=== PATIENT | female | born 1945 | race Caucasian/White ===

== ENCOUNTER 2017-03-09 13:48 | Inpatient (IN) | payer OTHER ==
[~2017-03-09] VITALS: Ht 154.9 cm; Wt 78.2 kg
[2017-03-09 14:43] LABS: HEMATOCRIT 40.2 % (36.0-46.0); MCHC 32.8 G/DL (30.0-36.0); MCV 88.4 FL (83-99); RBC DIS.WIDTH-CV 13.3 % (11.8-14.6); RBC DIS.WIDTH-SD 43.7 % (39-53); RED BLOOD COUNT 4.55 M/uL (3.80-5.20)
[2017-03-09 14:50] LABS: PROTHROMBIN TIME 11.2 SEC (10.2-12.9)
[2017-03-09 14:51] LABS: CHLORIDE 109 mEq/L (99-109); SODIUM 144 mEq/L (136-147)
[2017-03-09 14:53] LABS: GLUCOSE 103 mg/dL (70-99)
[2017-03-09 14:54] LABS: ANION GAP 10 MEQ/L (2-14)
[2017-03-09 14:57] LABS: GFR ESTIMATE (CALCULATED) > 59 mL/min/
[2017-03-09 14:58] LABS: UREA NITROGEN (BUN) 10 mg/dL (9-23)
[2017-03-09 15:48] LABS: MEAN PLAT.VOLUME 11.3 uM^3 (9.5-12.4); PLAT.SUFFICIENCY ADEQUATE; PLATELET COUNT 255 K/uL (156-360)
[2017-03-09] MEDS ORDERED: NAPROXEN500 MG PO (16:13)
[2017-03-09] MEDS ORDERED: MINOCYCLINE HC100 MG PO (16:14)
[2017-03-09] MEDS ORDERED: SIMVASTATIN20 MG PO (16:14)
[2017-03-09] MEDS ORDERED: FLUTICASONE PRO16 GM BOTH NARES (16:14)
[2017-03-09] MEDS ORDERED: FUROSEMIDE20 MG PO (16:14)
[2017-03-09] MEDS ORDERED: OMEPRAZOLE40 M1 PO (16:15)
[2017-03-09] MEDS ORDERED: LOSARTAN POTAS100 MG PO (16:15)
[2017-03-09] MEDS ORDERED: CALCIUM + D SO1 EACH PO (16:16)
[2017-03-09] MEDS ORDERED: VITAMIN B122500 MCG PO (16:16)
[2017-03-09] MEDS ORDERED: VITAMIN D35000 UNIT PO (16:17)
[2017-03-09] MEDS ORDERED: ONE DAILY MULT1 EACH PO (16:17)
[2017-03-09] MEDS ORDERED: FISH OIL 1,0001 EA10 PO (16:18)
[2017-03-09] MEDS ORDERED: MELATONIN5 MG SL (16:18)
[2017-03-09 17:10] LABS: TROP-I INTERPRETATION NEGATIVE; TROPONIN-I < 0.01 ng/mL (0.0-0.30)
[2017-03-09 19:41] VITALS: BP 170/81
[2017-03-09 23:04] VITALS: BP 150/68
[2017-03-10 05:30] VITALS: BP 140/56
[2017-03-10 07:34] VITALS: BP 146/65
[2017-03-10 13:31] LABS: HEMATOCRIT 38.6 % (36.0-46.0); MCH 28.7 PG (29.0-34.0); MCHC 32.4 G/DL (30.0-36.0); MCV 88.7 FL (83-99); MEAN PLAT.VOLUME 11.1 uM^3 (9.5-12.4); PLATELET COUNT 237 K/uL (156-360); RBC DIS.WIDTH-CV 13.6 % (11.8-14.6); RBC DIS.WIDTH-SD 44.5 % (39-53); RED BLOOD COUNT 4.35 M/uL (3.80-5.20); WHITE BLOOD COUNT 5.8 K/uL (4.1-10.2)
[2017-03-10 13:57] LABS: ALKALINE PHOSPHATASE 108 IU/L (3-129); ANION GAP 9 MEQ/L (2-14); CHLORIDE 106 MEQ/L (99-109); GFR ESTIMATE (CALCULATED) > 59 mL/min/; GLUCOSE 99 mg/dL (70-99); HDL CHOLESTEROL 77 MG/DL (Desirable>=50); LDL CHOLESTEROL 78 mg/dL (Desirable<100); NON-HDL CHOLESTEROL 99 mg/dL (Desirable<160); POTASSIUM 3.6 MEQ/L (3.7-5.4); SAMPLE HEMOLYSIS CHECK 0; SAMPLE ICTERIC CHECK 0; SAMPLE LIPEMIA CHECK 0; SODIUM 145 MEQ/L (136-147); TOTAL BILIRUBIN 0.5 MG/DL (0.0-1.0); TOTAL CHOLESTEROL 176 mg/dL (Desirable<200); TRIGLYCERIDES 106 MG/DL (Normal: <150); UREA NITROGEN (BUN) 11 mg/dL (9-23)
[2017-03-10 14:54] LABS: Estimated Average Glucose 114 mg/dL (70-123); HEMOGLOBIN A1c (GLYCOHEMOGLOB) 5.6 % HGB (Below 5.7)
[2017-03-10 19:38] VITALS: BP 165/70
[2017-03-11] VITALS (9 sets, daily range): BP systolic 114–198; BP diastolic 56–93
[2017-03-11 05:56] LABS: HEMATOCRIT 38.2 % (36.0-46.0); MCH 28.5 PG (29.0-34.0); MCHC 32.2 G/DL (30.0-36.0); MCV 88.4 FL (83-99); MEAN PLAT.VOLUME 11.3 uM^3 (9.5-12.4); PLATELET COUNT 230 K/uL (156-360); RBC DIS.WIDTH-CV 13.6 % (11.8-14.6); RBC DIS.WIDTH-SD 44.5 % (39-53); RED BLOOD COUNT 4.32 M/uL (3.80-5.20); WHITE BLOOD COUNT 4.7 K/uL (4.1-10.2)
[2017-03-11 06:39] LABS: ALKALINE PHOSPHATASE 116 IU/L (3-129); ANION GAP 9 MEQ/L (2-14); CHLORIDE 105 MEQ/L (99-109); GFR ESTIMATE (CALCULATED) > 59 mL/min/; SAMPLE HEMOLYSIS CHECK 0; SAMPLE ICTERIC CHECK 0; SAMPLE LIPEMIA CHECK 0; SODIUM 142 MEQ/L (136-147); UREA NITROGEN (BUN) 14 mg/dL (9-23)
[2017-03-11 06:45] LABS: GLUCOSE 149 mg/dL (70-99); POTASSIUM 4.4 MEQ/L (3.7-5.4); TOTAL BILIRUBIN 0.3 MG/DL (0.0-1.0)
[2017-03-12 06:17] LABS: HEMATOCRIT 35.5 % (36.0-46.0); MCH 29.9 PG (29.0-34.0); MCHC 33.2 G/DL (30.0-36.0); MCV 89.9 FL (83-99); MEAN PLAT.VOLUME 11.6 uM^3 (9.5-12.4); PLATELET COUNT 211 K/uL (156-360); RBC DIS.WIDTH-SD 45.4 % (39-53); RED BLOOD COUNT 3.95 M/uL (3.80-5.20); WHITE BLOOD COUNT 8.8 K/uL (4.1-10.2)
[2017-03-12 06:43] LABS: ANION GAP 9 MEQ/L (2-14); CHLORIDE 107 MEQ/L (99-109); GFR ESTIMATE (CALCULATED) > 59 mL/min/; POTASSIUM 4.4 MEQ/L (3.7-5.4); SAMPLE HEMOLYSIS CHECK 0; SAMPLE ICTERIC CHECK 0; SAMPLE LIPEMIA CHECK 0; SODIUM 143 MEQ/L (136-147); TOTAL BILIRUBIN 0.3 MG/DL (0.0-1.0)
[2017-03-12 06:45] LABS: ALKALINE PHOSPHATASE 79 IU/L (3-129); GLUCOSE 102 mg/dL (70-99); UREA NITROGEN (BUN) 24 mg/dL (9-23)
[2017-03-12 07:46] VITALS: BP 126/59
[2017-03-12 12:08] VITALS: BP 136/69
[2017-03-12] MEDS ORDERED: AMLODIPINE BESYL5 MG PO (16:53)
[2017-03-12 17:37] VITALS: BP 136/73
== END 2017-03-12 18:25 | disposition home or self-care (01) | DRG 64 ==
LOC: EME 13:48 → 4EAST 16:12 → EDOF 16:12 → ENRESERV 16:12 → 4EAST 19:41 → ENRESERV 03-11 11:44 → 5SOUTH 03-11 15:12
PROVIDERS: Emergency Medicine; Internal Medicine
DX: I60.9 Nontraumatic subarachnoid hemorrhage, unspecified (principal); K21.9 Gastro-esophageal reflux disease without esophagitis; H53.40 Unspecified visual field defects; I10 Essential (primary) hypertension; E78.5 Hyperlipidemia, unspecified; I63.9 Cerebral infarction, unspecified; R29.700 NIHSS score 0; M54.9 Dorsalgia, unspecified; R60.9 Edema, unspecified; Z79.899 Other long term (current) drug therapy; Z87.891 Personal history of nicotine dependence
CPT/HCPCS: 70450; 70496; 74177; 76705; 80048; 80053; 80061; 83036; 84443; 84484; 85027; 85610; 85730; 93005; 99281; 99285; J0360; J1100; J2270